=== PATIENT | female | born 1955 | race Caucasian/White ===

== ENCOUNTER 2016-11-25 07:45 | Day surgery (SDC) | payer BC ==
[2016-11-25] MEDS ORDERED: PROPOFOL 500 MG/50 ML EMU IV ONE (07:52)
[2016-11-25] MEDS ORDERED: LIDOCAINE HCL 1% MPF SOL ONE (07:52)
[2016-11-25 09:56] VITALS: BP 149/89; PULSE 85; RESP 24; TEMP 97.3; O2SAT 97
== END 2016-11-25 10:10 | disposition home or self-care (01) ==
LOC: SURG 07:45
PROVIDERS: ATTEND Surgery
DX: Z12.11 Encounter for screening for malignant neoplasm of colon (principal); K57.30 Diverticulosis of large intestine without perforation or abscess without bleeding; D12.0 Benign neoplasm of cecum
CPT/HCPCS: 45380; 99001; J2001 ×2; J2704 ×2

== ENCOUNTER 2018-11-10 12:24 | Outpatient (CLI) | payer OTHER, BC ==
[2016-11-25 09:56] VITALS: O2SAT 97
== END 2018-11-10 12:25 | disposition home or self-care (01) | DRG 556 ==
LOC: CONVCARE 12:24
PROVIDERS: ATTEND Orthopaedic Surgery
DX: M25.562 Pain in left knee (principal)
CPT/HCPCS: 73560; 73565